=== PATIENT | female | born 1990 | race Caucasian/White ===

== ENCOUNTER 2018-09-03 09:33 | Emergency (ER) | payer SELFPAY ==
[~2018-09-03] VITALS: Ht 165.1 cm; Wt 73.9 kg
[~2018-09-03 09:33] MED LIST: DONN PO; MP PO; PEP20 PO; ULT50 PO
[2018-09-03 10:01] VITALS: Ht 165.1 cm; Wt 73.9 kg
[2018-09-03 12:35] VITALS: BP 120/82
== END 2018-09-03 12:35 | disposition home or self-care (01) ==
LOC: ED 09:33
DX: R51 Headache (principal); Z90.49 Acquired absence of other specified parts of digestive tract; K21.9 Gastro-esophageal reflux disease without esophagitis
CPT/HCPCS: J1885